=== PATIENT | male | born 1995 | race African-American/Black ===

== ENCOUNTER 2019-04-28 09:57 | Emergency (ER) | payer OTHER ==
[~2019-04-28] VITALS: Ht 175.3 cm; Wt 90.7 kg
[2019-04-28 10:08] VITALS: BP 129/80
[2019-04-28] MEDS ORDERED: PANTOPRAZOLE 40 MG/10 ML VIAL INJ IV STA (10:24)
[2019-04-28] MEDS ORDERED: SODIUM CHLORIDE 0.9% 1,000 ML IVB ONE (10:24)
[2019-04-28] MEDS ORDERED: PROCHLORPERAZINE EDISYLATE 5 MG/ML 2ML VIAL IV ONE (10:30)
[2019-04-28] MEDS ORDERED: LORazepam 2MG/ML-1ML VIAL IV ONE (10:30)
[2019-04-28 10:48] LABS: Basophils # (auto) 0 uL; Basophils % (auto) 0.2 % (0.0-2.0); Eosinophils # (auto) 0 uL; Hemoglobin 15.4 g/dL (13.5-17.5); Lymphocytes # (auto) 1.4 uL; Lymphocytes % (auto) 24.4 % (10.0-50.0); Mean Corpuscular Hgb Conc. 33.4 g/dL (32.0-36.0); Mean Corpuscular Volume 89.9 fL (80.0-100.0); Monocytes # (auto) 0.3 uL; Monocytes % (auto) 5.2 % (0.0-12.0); Neutrophils % (auto) 70.2 % (37.0-80.0); Nucleated Red Blood Cells % 0.1 %; Platelet Count (auto) 223 10^3/uL (140-450); Red Blood Cells 5.11 10^6/uL (4.5-5.90); Red Cell Distribution Width 14.2 % (11.8-14.3); White Blood Cell 5.6 10^3/uL (4.4-10.8)
[2019-04-28 11:09] LABS: Potassium 4.1 mmol/L (3.5-5.1)
[2019-04-28 11:12] LABS: BUN/Creatinine Ratio 5.3; Bilirubin, Total 0.4 mg/dL (0.2-1.0); Total Protein 9.4 g/dL (6.4-8.2)
== END 2019-04-28 12:08 | disposition home or self-care (01) ==
LOC: ER 09:57
DX: R10.9 Unspecified abdominal pain (principal); F10.10 Alcohol abuse, uncomplicated; F12.10 Cannabis abuse, uncomplicated; R11.10 Vomiting, unspecified
CPT/HCPCS: 36415; 74176; 80053; 80320; 83690; 85025; 96361; 96374; 96375; 99284; C9113; J0780; J2060; J7030

== ENCOUNTER 2024-06-12 05:42 | Emergency (ER) | payer MEDICAID, OTHER ==
[~2024-06-12] VITALS: Ht 175.3 cm; Wt 109.4 kg
[2024-06-12 05:55] VITALS: BP 129/88; PULSE 55; RESP 16; TEMP 97.9; O2SAT 97
[2024-06-12] MEDS ORDERED: BICT1TAB PO (08:48)
--- NOTE | 2024-06-12 08:48 | ED.PDOC ---
History of Present Illness HPI Comments This is a 29-year-old male that comes in who is here only for a refill of his Biktarvy. Patient states he takes 1 daily 1 tablet daily for 30 days at a time he recently ran out of his meds. Denies any symptoms. Chief Complaint: Medical refill Time Seen by MD: 08:41 Primary Care Provider: CHAPARRO Reviewed Notes: Nurses Notes, Medications, Allergies Allergies: Coded Allergies: NO KNOWN ALLERGIES (Unverified , 04/28/19) Information Source: Patient Mode of Arrival: Ambulatory Past Medical History PAST MEDICAL HISTORY: HIV, Denies Surgical History: Denies all surgeries Family History Family History: No family hx of Cancer, No family hx of DM, No family hx of Heart lubna Social History Smoker: Non-Smoker Alcohol: Heavy Drugs: Marijuana Lives In: Home Physical Exam General Appearance: No Apparent Distress, Normal HEENT: Normal ENT Inspection, PERRL/EOMI, Pharynx Normal, TMs Normal Neck: Full Range of Motion, Non-Tender, Normal Inspection Respiratory: Lungs Clear, None, No Respiratory Distress, Normal Breath Sounds Cardiovascular: Regular Rate/Rhythm Breast Exam: Deferred Gastrointestinal: Non Tender, Normal Bowel Sounds, Soft Genitalia: Deferred Pelvic: Deferred Rectal: Deferred Extremities: Normal inspection, Normal range of motion Neurologic: Alert, No Motor Deficits, Normal Affect, Normal Mood Cerebellar Function: NOT DONE Reflexes: NOT DONE Skin: Dry, Warm Lymphatic: NOT DONE Was a procedure done? Was a procedure done?: No Differential Dx Considerations may include: HIV exacerbation X-Ray, Labs, Meds, VS Vital Signs Date Time Temp Pulse Resp B/P (MAP) Pulse Ox O2 Delivery O2 Flow Rate FiO2 06/12/24 05:55 97.9 55 16 129/88 (102) 97 97.9 Time of 1ST Reevaluation: 08:43 Reevaluation 1ST: Unchanged Patient Education/Counseling: Diagnosis, Treatment, Prognosis, Need For Follow Up Family Education/Counseling: No Family Present Departure 1 Departure Time of Disposition: 08:44 Impression: Primary Impression: Encounter for medication refill Disposition: 01 HOME / SELF CARE / HOMELESS Condition: Good Additional Instructions: Please contact your regular doctor for further refills. e-Prescriptions [id number] (Biktarvy 50-200-25 mg) 1 Tab Tab 1 TAB PO DAILY, #30 TAB Prov: ETTA ARRIAZA 06/12/24 Discharged With: Self Critical Care Note Critical Care Time?: No Stability Stability form required: Yes ETTA ARRIAZA Jun 12, 2024 08:48
== END 2024-06-12 08:49 | disposition home or self-care (01) ==
LOC: ER 05:42
DX: Z76.0 Encounter for issue of repeat prescription (principal); Z21 Asymptomatic human immunodeficiency virus [HIV] infection status